=== PATIENT | female | born 1970 | race Hispanic/Latino ===

== ENCOUNTER 2025-02-07 13:27 | Emergency (ER) | payer MEDICAID ==
[~2025-02-07] VITALS: Ht 167.6 cm; Wt 77.1 kg
--- NOTE | 2025-02-07 15:06 | ERN ---
ED Note History of Present Illness Stated Complaint: LOW BACK PAIN Chief Complaint: Back Pain or Injury Time Seen by MD: 13:56 Time Seen by Midlevel: 14:00 Dictation: 54-year-old female with a history of mental illness. Was brought in by her provider with concerns of swelling feet and back pain. As per provider the patient was already seen by her PCP for the swelling to the feet and was placed on a seven days and diuretics and seemed to have helped but has been as she got off with the diuretics the swelling returned. Allergies: Coded Allergies: No Known Drug Allergies (Unverified Allergy, Unknown, 02/07/25) Past Medical History Past Medical History: Anxiety, Bipolar, Seizure, Other Additional Past Medical Hx: ADHD, MR Surgical History: None Review of System Dictation Constitutional: Negative for fever,chills, and weight loss Eyes: Negative for injury, pain,redness, and discharge ENT: Negative for injury,pain or swelling Cardiovascular: Negative for chest pain, palpitations, and edema Respiratory: Negative for shortness of breath, cough, and wheezing, Abdomen/GI: Negative for abdominal pain, nausea, vomiting, diarrhea, and constipation Back: Negative for injury and pain : Negative for injury, bleeding and discharge MS/Extremity: Negative for injury and deformity complaining of sudden to the lower extremities Skin: Negative for rash, and discoloration Neuro: Negative for headache, weakness, numbness, tingling, and seizure Psych: Negative for suicide ideation, homicidal ideation, and hallucinations Review of Systems: was completed Initial Vital Sign VS Vital Signs Date Time Temp Pulse Resp B/P (MAP) Pulse Ox O2 Delivery O2 Flow Rate FiO2 02/07/25 13:48 98.1 84 20 114/65 99 Room Air 0 02/07/25 15:59 21 Physical Exam Dictation General: awake, alert, NAD Head/Face: Normocephalic, atraumatic Eyes: PERRL, EOMI, vision at baseline ENT: oral cavity clear, TMs clear, no signs of infection Neck: Trachea midline, supple, no nuchal rigidity Cardiovascular: RRR, normal S1/S2, No MRGs, no JVD, plus one pitting edema to bilateral lower extremities Respiratory: CTAB, no respiratory distress, No rales or wheezes Abdomen: Soft, non-tender, non-distended, normal bowel sounds, no guarding or rebound., no CVA tenderness Skin: Warm, dry, normal turgor, no rash MS/Extremity: Pulses equal, no cyanosis, neurovascular intact, FROM Neuro: COAx4, GCS 15, strength 5/5, CN 2-12 intact, normal cerebellar exam, normal gait, Psych: Normal behavior, mood, and affect normal Results (Laboratory/Radiology) Laboratory/Radiology Laboratory Tests Test 02/07/25 15:28 02/07/25 17:25 White Blood Count 8.4 K/uL (4.8-10.8) Red Blood Count 3.63 MIL/uL (4.00-5.50) L Hemoglobin 11.1 g/dL (12.0-16.0) L Hematocrit 33.1 % (36-48) L Mean Corpuscular Volume 91.2 fL (79-99) Mean Corpuscular Hemoglobin 30.6 pg (27.0-33.0) Mean Corpuscular Hemoglobin Concent 33.5 g/dL (32.0-36.0) Red Cell Distribution Width 13.5 % (11.0-15.5) Platelet Count 312 K/uL (130-400) Mean Platelet Volume 9.1 fL (7.5-10.5) Immature Granulocyte % (Auto) 2.3 % (0-1) H Neutrophils (%) (Auto) 45.8 % (40.0-77.0) Lymphocytes (%) (Auto) 33.9 % (21.0-51.0) Monocytes (%) (Auto) 13.4 % (3.0-13.0) H Eosinophils (%) (Auto) 4.1 % (0.0-8.0) Basophils (%) (Auto) 0.5 % (0.0-5.0) Neutrophils # (Auto) 3.8 K/uL (1.8-7.7) Lymphocytes # (Auto) 2.8 K/uL (1.0-4.8) Monocytes # (Auto) 1.1 K/uL (0.1-1.0) H Eosinophils # (Auto) 0.34 K/uL (0.00-0.70) Basophils # (Auto) 0.04 K/uL (0.00-0.20) Absolute Immature Granulocyte (auto 0.19 K/uL (0-1) Nucleated Red Blood Cells 0.0 % (0.0-0.19) Sodium Level 137 mmol/L (136-145) Potassium Level 4.6 mmol/L (3.5-5.1) Chloride Level 98 mmol/L (101-111) L Carbon Dioxide Level 32 mmol/L (21-32) Blood Urea Nitrogen 11 mg/dL (7-18) Creatinine 0.3 mg/dL (0.5-1.0) L Glomerular Filtration Rate Calc 128 mL/min (>90) Random Glucose 93 mg/dL (70-105) Total Calcium 9.5 mg/dL (8.5-10.1) B-Type Natriuretic Peptide 44 pg/mL (0-100) Urine Color COLORLESS (YELLOW) Urine Appearance CLEAR (CLEAR) Urine pH 6.5 (5.0-8.0) Urine Specific [place] 1.014 (1.001-1.031) Urine Protein NEGATIVE mg/dL (NEGATIVE) Urine Glucose (UA) NEGATIVE mg/dL (NEGATIVE) Urine Ketones NEGATIVE mg/dL (NEGATIVE) Urine Occult Blood SMALL (NEGATIVE) H Urine Nitrate NEGATIVE (NEGATIVE) Urine Bilirubin NEGATIVE mg/dL (NEGATIVE) Urine Urobilinogen 0.2 mg/dL (0.2-1.0) Urine Leukocyte Esterase 250 Jayde/uL (NEGATIVE) H Urine RBC 6-10 /HPF (0-1) H Urine WBC 6-10 /HPF (0-1) H Urine Squamous Epithelial Cells RARE /HPF (0-2) Urine Bacteria None /HPF (None Seen) Labs Reviewed?: Yes ED Course ED Course Orders Procedure Category Date Status Time Cbc With Differential LAB 02/07/25 Complete 14:46 Basic Metabolic Panel LAB 02/07/25 Complete 14:46 Urinalysis Profile LAB 02/07/25 Complete 14:46 B-Type Natriuretic LAB 02/07/25 Complete Peptide 14:46 Culture Urine JAMES 02/07/25 In Process 17:38 Vital Signs Date Time Temp Pulse Resp B/P (MAP) Pulse Ox O2 Delivery O2 Flow Rate FiO2 02/07/25 15:59 98.1 84 20 114/65 99 Room Air* 0 21 02/07/25 13:48 98.1 84 20 114/65 99 Room Air 0 Medical Decision Making MDM MDM: 54-year-old female with a history of mental illness. Was brought in by her provider with concerns of swelling feet and back pain. As per provider the patient was already seen by her PCP for the swelling to the feet and was placed on a seven days and diuretics and seemed to have helped but has been as she got off with the diuretics the swelling returned. Patient states he is also taking antibiotics waiting now for urinary tract infection. Blood work unremarkable. Mild anemia of hemoglobin of 11. Otherwise everything within normal range. Discussed with provider that patient needs to follow up with PCP and be further evaluated. At this time there is no evidence of fluid overload or fluid retention. Vital signs and feeling stable. Educated to return to the hospital if symptoms worsen. Both verbalized understanding, answered all questions. Differential diagnosis: Fluid overload, urinary tract infection, abnormal kidney function Rationale: Tests considered and ordered secondary to shared decision making include: Previous outside records reviewed: Old ER visits. Risk of complication and/or morbidity or mortality of patient management: None Medications-Per medication reconciliation Need for hospitalization: Patient does not meet criteria for hospitalization. Need for emergency major/minor surgery: No There are no social concerns with this patient. Prescription drug management Prescriptions will include symptomatic care Patient's prior external medical records from other ER visits were reviewed by me as indicated. Prior testing and results from previous visits were reviewed. Prior tests were taken into account with medical decision making and resource utilization, independent historian/historians were used to obtain complete medical history. I independently interpreted the test that were performed, results were reviewed by me and considered findings on radiology if ordered. Medical management and examination interpretation discussions were had by me with other qualified healthcare professionals as indicated for the patient's c are. DX & DISP Disposition: Discharge Departure Impression: Primary Impression: Swelling of both lower extremities Condition: Stable Additional Instructions: Follow up with her primary care provider in the next few days. Return to the hospital for any worsening symptoms. Referrals: ENRRIQUE RUSSO JR., MD (PCP) Time of Disposition: 17:49 I have reviewed the case, and I agree with, Diagnosis and Plan OLINDA SÁNCHEZ NP Feb 07, 2025 15:06
[2025-02-07 15:34] LABS: IMMATURE GRANULOCYTE ABSOLUTE 0.19 K/uL (0-1); NUCLEATED RED BLOOD CELLS 0.0 % (0.0-0.19); PLATELET COUNT (AUTO) 312 K/uL (130-400); RED BLOOD CELL COUNT(AUTO) 3.63 MIL/uL (4.00-5.50); RED CELL DISTRIBUTION WIDTH 13.5 % (11.0-15.5); WHITE BLOOD COUNT (AUTO) 8.4 K/uL (4.8-10.8)
[2025-02-07 15:41] LABS: CREATININE 0.3 mg/dL (0.5-1.0); GLOMERULAR FILTR. RATE CALC 128.0 mL/min (>90); GLUCOSE,RANDOM 93.0 mg/dL (70-105); SODIUM SERUM 137.0 mmol/L (136-145); UREA NITROGEN, BLOOD 11.0 mg/dL (7-18)
[2025-02-07 17:37] LABS: APPEARANCE,URINE CLEAR (CLEAR); GLUCOSE, URINE (UA) NEGATIVE (NEGATIVE); LEUKOCYTE ESTERASE ,URINE 250 Leu/uL (NEGATIVE); NITRATE,URINE NEGATIVE (NEGATIVE); OCCULT BLOOD,URINE SMALL (NEGATIVE)
[2025-02-07 17:38] LABS: ADD UA MICROSCOPIC YES
[2025-02-07 17:40] LABS: SQUAMOUS EPITHELIAL CELL,UR RARE /HPF (0-2)
[2025-02-07 17:59] VITALS: BP 121/74; PULSE 80; RESP 20; TEMP 98.1; O2SAT 99
[2025-02-11] MEDS ORDERED: FURO20TA6 PO (04:55)
== END 2025-02-07 18:01 | disposition home or self-care (01) ==
LOC: EDH 13:27
DX: M79.89 Other specified soft tissue disorders (principal); M54.50 Low back pain, unspecified; F31.9 Bipolar disorder, unspecified; F41.9 Anxiety disorder, unspecified
CPT/HCPCS: 36415; 80048; 81001; 83880; 85025; 87086; 99283